=== PATIENT | male | born 1975 | race Caucasian/White ===

== ENCOUNTER 2020-11-20 17:51 | Emergency (ER) | payer BC, OTHER ==
[~2020-11-20 17:51] MED LIST: ASPIR 8181 MG PO; CHANTIX0.5 MG PO; CYCLOBENZAPRINE10 MG PO; IBUPROFEN800 MG PO; LIPITOR TAB 2020 MG PO; LOPRESSOR 25 MG25 MG PO; LORATADINE10 MG PO; NITROSTAT 0.3100 TAB SL; NORVASC10 MG PO; OMNICEF 300 MG300 MG PO; ROPINIROLE HCL0.5 MG PO; TOPROL XL 25 MG25 MG PO; TORADOL 10 MG T10 MG PO; TRAMADOL HCL50 MG PO; VENTOLIN HFA 66.7 GM INH; ZITHROMAX250 MG PO; ZOFRAN4 MG PO
[2020-11-20 18:32] LABS: HEMOGLOBIN 14.5 gm/dl (14.0-17.5); RED BLOOD COUNT 4.93 M/UL (4.20-5.50); WHITE BLOOD COUNT 10.3 K/UL (4.5-11.0)
[2020-11-20 19:01] LABS: BUN/CREATININE RATIO 17 (0-10)
[2020-11-20] MEDS ORDERED: MOBIC15 MG PO (21:59)
[2020-11-20] MEDS ORDERED: CYCLOBENZAPRINE5 MG PO (21:59)
[2020-11-20] MEDS ORDERED: K-DUR TAB 20 M20 MEQ PO (21:59)
== END 2020-11-20 22:08 | disposition home or self-care (01) ==
LOC: ER1 17:51
PROVIDERS: Physician Assistant
DX: R07.89 Other chest pain (principal); E87.6 Hypokalemia; E78.5 Hyperlipidemia, unspecified; I10 Essential (primary) hypertension; I25.10 Atherosclerotic heart disease of native coronary artery without angina pectoris; F17.210 Nicotine dependence, cigarettes, uncomplicated; Z79.82 Long term (current) use of aspirin; Z79.899 Other long term (current) drug therapy; Z90.89 Acquired absence of other organs; Z95.1 Presence of aortocoronary bypass graft; Z87.442 Personal history of urinary calculi
CPT/HCPCS: 71045; 80053; 82550; 82553; 83690; 83874; 84484; 85025; 93005; 96374; 99285; J1885

== ENCOUNTER 2020-12-26 20:18 | Emergency (ER) | payer BC, OTHER ==
[~2020-12-26 20:18] MED LIST changes: +CYCLOBENZAPRINE5 MG PO; +K-DUR TAB 20 M20 MEQ PO; +MOBIC15 MG PO
== END 2020-12-26 21:00 | disposition left against medical advice (07) ==
LOC: ER1 20:18
DX: M79.642 Pain in left hand (principal); E78.5 Hyperlipidemia, unspecified; I25.10 Atherosclerotic heart disease of native coronary artery without angina pectoris; I25.2 Old myocardial infarction; I10 Essential (primary) hypertension; Z95.1 Presence of aortocoronary bypass graft; F17.210 Nicotine dependence, cigarettes, uncomplicated
CPT/HCPCS: 99283

== ENCOUNTER → 2021-07-17 | Outpatient (CLI) | payer BC ==
[~2021-07-17] MED LIST changes: +LODINE CAP 300300 MG PO; +PERCOCET 5/325 T1 EA PO
== END ==
LOC: KOH-I 10:30
DX: S83.242A Other tear of medial meniscus, current injury, left knee, initial encounter (principal); M25.462 Effusion, left knee
CPT/HCPCS: 73721

== ENCOUNTER 2021-07-18 16:22 | Emergency (ER) | payer BC ==
[~2021-07-18 16:22] MED LIST changes: -LODINE CAP 300300 MG PO; -PERCOCET 5/325 T1 EA PO
[2021-07-18] MEDS ORDERED: LODINE CAP 300300 MG PO (19:55)
== END 2021-07-18 20:17 | disposition home or self-care (01) ==
LOC: ER1 16:22
DX: M25.562 Pain in left knee (principal); F17.210 Nicotine dependence, cigarettes, uncomplicated; I11.9 Hypertensive heart disease without heart failure; I25.2 Old myocardial infarction; E78.5 Hyperlipidemia, unspecified; Z95.1 Presence of aortocoronary bypass graft; W19.XXXA Unspecified fall, initial encounter; Y92.89 Other specified places as the place of occurrence of the external cause; Y99.0 Civilian activity done for income or pay
CPT/HCPCS: 29530; 73562; 99283

== ENCOUNTER 2021-07-21 19:31 | Emergency (ER) | payer BC ==
[~2021-07-21 19:31] MED LIST changes: +LODINE CAP 300300 MG PO
[2021-07-21 20:32] LABS: HEMOGLOBIN 15.2 gm/dl (14.0-17.5); RED BLOOD COUNT 5.13 M/UL (4.20-5.50); WHITE BLOOD COUNT 10.5 K/UL (4.5-11.0)
[2021-07-21 20:44] LABS: BUN/CREATININE RATIO 17 (0-10)
[2021-07-21] MEDS ORDERED: PERCOCET 5/325 T1 EA PO (23:00)
== END 2021-07-21 23:08 | disposition home or self-care (01) ==
LOC: ER1 19:31
PROVIDERS: Physician Assistant
DX: S80.02XA Contusion of left knee, initial encounter (principal); F17.210 Nicotine dependence, cigarettes, uncomplicated; Z90.49 Acquired absence of other specified parts of digestive tract; I25.10 Atherosclerotic heart disease of native coronary artery without angina pectoris; I25.2 Old myocardial infarction; E78.5 Hyperlipidemia, unspecified; I10 Essential (primary) hypertension; W19.XXXA Unspecified fall, initial encounter
CPT/HCPCS: 73562; 80053; 85025; 85652; 86140; 99283

== ENCOUNTER → 2021-09-17 | Outpatient (CLI) | payer BC ==
[~2021-09-17] MED LIST changes: +HYDROCODONE-AC1 EAC1 PO; +LISINOPRIL-HCT1 EAC2 PO; +MEN'S MULTIVIT1 EACH PO; +NEURONTIN800 MG PO; +NITROSTAT0.4 MG SL; +PERCOCET 5/325 T1 EA PO; +PREDNISONE10 MG PO; +PROTONIX40 MG PO; +PROVENTIL HFA6.7 GM INH; +VITAMIN D325 MCG PO
[2021-09-17 09:17] LABS: HEMOGLOBIN 15.1 gm/dl (14.0-17.5); RED BLOOD COUNT 5.19 M/UL (4.20-5.50); WHITE BLOOD COUNT 7.9 K/UL (4.5-11.0)
[2021-09-17 09:35] LABS: BUN/CREATININE RATIO 23 (0-10)
== END ==
LOC: OPSV2 08:00
PROVIDERS: Orthopaedic Surgery
DX: Z01.818 Encounter for other preprocedural examination (principal); S83.207A Unspecified tear of unspecified meniscus, current injury, left knee, initial encounter
CPT/HCPCS: 36415; 80048; 85025; 93005

== ENCOUNTER → 2021-09-25 | Day surgery (SDC) | payer BC ==
[~2021-09-25] VITALS: Ht 175.3 cm; Wt 107.5 kg
[~2021-09-25] MED LIST changes: +HYDROCODON-ACE1 EAC6 PO
== END | disposition home or self-care (01) ==
LOC: OR 07:01
DX: M23.312 Other meniscus derangements, anterior horn of medial meniscus, left knee (principal); M23.42 Loose body in knee, left knee; M94.262 Chondromalacia, left knee; M25.462 Effusion, left knee; R29.6 Repeated falls; I10 Essential (primary) hypertension; E78.5 Hyperlipidemia, unspecified; I25.10 Atherosclerotic heart disease of native coronary artery without angina pectoris; K21.9 Gastro-esophageal reflux disease without esophagitis; Z95.1 Presence of aortocoronary bypass graft; Z90.49 Acquired absence of other specified parts of digestive tract; Z79.82 Long term (current) use of aspirin; Z20.822 Contact with and (suspected) exposure to COVID-19; W01.0XXA Fall on same level from slipping, tripping and stumbling without subsequent striking against object, initial encounter
CPT/HCPCS: J0171; J0690; J1100; J1170; J1885; J2250; J2405; J2704; J3010; J7050; J7120

== ENCOUNTER 2021-12-04 16:31 | Emergency (ER) | payer BC | END 2021-12-04 17:51 | disposition left against medical advice (07) | LOC: ER1 16:31 | DX: Z53.21 Procedure and treatment not carried out due to patient leaving prior to being seen by health care provider (principal) ==

== ENCOUNTER → 2022-03-27 | Outpatient (CLI) | payer BC | LOC: KOH-I 13:44 | DX: M50.30 Other cervical disc degeneration, unspecified cervical region (principal); M47.816 Spondylosis without myelopathy or radiculopathy, lumbar region; M25.78 Osteophyte, vertebrae | CPT/HCPCS: 72141 ==